=== PATIENT | male | born 1980 | race Caucasian/White ===

== ENCOUNTER 2024-03-25 16:26 | Emergency (ER) | payer BC, SELFPAY ==
[2024-03-25 17:32] VITALS: BP 147/84; PULSE 70; RESP 18; TEMP 37.1; O2SAT 97; BMI 39.3
--- NOTE | 2024-03-25 19:56 | CRLHL7_ITS ---
For Patients: As a result of the Century Cures Act, medical imaging exams and procedure reports are released immediately into your electronic medical record. You may view this report before your referring provider. If you have questions, please contact your health care provider. INDICATION: Possible left inguinal hernia. TECHNIQUE: CT pelvis without contrast. COMPARISON: None. FINDINGS: Bones: Alignment is normal. No sign of acute fracture. No suspicious bony lesions. Joints: Unremarkable. Soft tissues: Multiple mildly enlarged left inguinal lymph nodes, measuring up to 2.4 centimeters (series 2/image 83). No bowel containing or fat containing inguinal hernias as questioned. Visible bowel, prostate gland, bladder are unremarkable.. IMPRESSION: Multiple mildly enlarged left inguinal lymph nodes, measuring up to 2.4 centimeters. These are indeterminate, and could be reactive in nature. Recommend short-term clinical follow-up. These are amenable to ultrasound-guided biopsy if medically necessary. Otherwise, no acute intrapelvic abnormality including inguinal hernia as questioned. Please note that all CT scans at this facility use dose modulation, iterative reconstruction, and/or weight-based dosing when appropriate to reduce radiation dose to as low as reasonably achievable. Dictated by Jose Chilel MD @ 03/25/2024 8:34:03 PM (Electronically Signed)
--- NOTE | 2024-03-25 19:57 | ED_ITS ---
HPI - General Adult General Chief complaint: Groin Pain Stated complaint: Groin pain Time Seen by Provider: 03/25/24 19:33 History of Present Illness HPI narrative: This 43-year-old male comes in with left inguinal pain over the past couple days. The pain is worse when in a sitting and standing position. He feels a lump at times in this area and is suspicious of a hernia. He does not report any nausea, vomiting, altered bowel function or dysuria symptoms. Related Data Previous Rx's ?Medication ?Instructions ?Recorded hydrocodone 5 mg-acetaminophen 325 1 tab PO Q4-6H PRN pain #10 tabs 03/25/24 mg tablet Allergies Allergy/AdvReac Type Severity Reaction Status Date / Time No Known Drug Allergies Allergy Verified 03/25/24 17:40 Review of Systems Status of ROS: Reports: 10 or more systems reviewed and unremarkable except as noted in History and below Narrative: Constitutional: No fevers, no weight gain or loss. Eyes: No discharge. No vision changes. HENT: No congestion, no sore throat, no ear pain. Cardiovascular: No chest pain, no palpitations. Respiratory: No shortness of breath, no wheezes, no cough. Gastrointestinal: No vomiting, no diarrhea. Abdominal pain as described above. Genitourinary: No dysuria, no hematuria. Musculoskeletal: Normal range of motion. Skin: No rashes, no pruritis. Neurological: No dizziness, weakness, sensory change, speech change. Endo/Heme/Allergies: No bruising or bleeding. No polydipsia. Pysch: no suicidality, no anxiety, no insomnia. All other systems reviewed and are negative. Exam Narrative: Exam Narrative: Constitutional: Well-developed, well-nourished, no acute distress. HEENT: Normocephalic, atraumatic. Neck: Normal range of motion. Nontender. Supple. Heart: Regular. No murmurs. Normal rate. Intact distal pulses. Lungs: Clear to auscultation. No chest discomfort. No wheezes, rhonchi, or rales. Abdomen: Normal bowel sounds. No rebound tenderness. Tenderness in the left inguinal region. No obvious palpable mass from a hernia when in a sitting position. Genitalia: Deferred. Back: No midline tenderness. Normal range of motion. Extremities: Normal range of motion. No injury. Skin: Intact. No rash. Warm. No erythema or pallor. Neurologic: No altered sensation. No weakness. Alert and oriented. Psychiatric: No suicidality. No anxiety or depression. No insomnia. Nursing notes and vitals signs are reviewed. Const: Vital Signs, click to edit/add: Vital Signs - 24 hr 03/25/24 17:32 Temperature 98.8 F Pulse Rate [Right Pulse Oximeter] 70 Respiratory Rate 18 Blood Pressure [Ri ght Upper Arm] 147/84 H Pulse Oximetry 97 Oxygen Delivery Me thod Room Air Course Vital Signs Vital signs: Initial Vital Signs Temperature 98.8 F 03/25/24 17:32 Temperature Source Temporal Artery Scan 03/25/24 17:32 Pulse Rate 70 03/25/24 17:32 Pulse Rhythm Regular 03/25/24 17:32 Pulse Strength 3+ Normal 03/25/24 17:32 Respiratory Rate 18 03/25/24 17:32 Blood Pressure 147/84 H 03/25/24 17:32 Blood Pressure Mean 105 03/25/24 17:32 Blood Pressure Position Sitting 03/25/24 17:32 Pulse Oximetry 97 03/25/24 17:32 Oxygen Delivery Method Room Air 03/25/24 17:32 Vital Signs Temperature 98.8 F 03/25/24 17:32 Pulse Rate 70 03/25/24 17:32 Respiratory Rate 18 03/25/24 17:32 Blood Pressure 147/84 H 03/25/24 17:32 Pulse Oximetry 97 03/25/24 17:32 Oxygen Delivery Method Room Air 03/25/24 17:32 Temperature 98.8 F 03/25/24 17:32 Pulse Rate 70 03/25/24 17:32 Respiratory Rate 18 03/25/24 17:32 Blood Pressure 147/84 H 03/25/24 17:32 Pulse Oximetry 97 03/25/24 17:32 Oxygen Delivery Method Room Air 03/25/24 17:32 Medical Decision Making MDM Narrative Medical decision making narrative: This patient comes in reporting left inguinal pain for the past couple days. I did order a CT scan of the pelvis and radiologist reviewed it stating that there is no evidence of inguinal hernia. There is noted to be some mildly enlarged inguinal lymph nodes. Patient does not have any sign of infection but these reactive lymph nodes are likely what is causing his discomfort. There is no other abnormality identified. The patient is reassured with this result and is glad that there is no sign of a hernia. I did provide [facility] prescription for Spring. I also advised him regarding signs and symptoms that would indicate need for return and re-evaluation. Imaging Data CT scan - pelvis: Radiologist's impression: Multiple mildly enlarged left inguinal lymph nodes, measuring up to 2.4 centimeters. These are indeterminate, and could be reactive in nature. Recommend short-term clinical follow-up. These are amenable to ultrasound-guided biopsy if medically necessary. Otherwise, no acute intrapelvic abnormality including inguinal hernia as questioned. Discharge Plan Discharge Clinical Impression: Inguinal lymphadenopathy Patient Disposition: Home, Self-Care Condition: Stable Additional Instructions: Take medication as needed and directed. Follow up with MD return if symptoms are persistent or worsening. Prescriptions: New hydrocodone-acetaminophen 5-325 mg tablet 1 tab PO Q4-6H PRN (Reason: pain) Qty: 10 0RF Follow Up/Referrals: Provider,Not a Local [Primary Care Provider] - Stand Alone Forms: Xiaoi Robert Info Instructions
--- OUTSIDE RECORDS SUMMARY | 2024-03-25 20:14 | XMS_ITS | Clinical Summary ---
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 Hyperlipidemia 07/29/2012 Encounters Date Type Department Care Team Description 03/25/2024 Nurse Triage [facility] [address] [place] [address] Colby Deng MD Penis/scrotal Problem from Last 3 Months Immunizations Name Administration Dates Next Due Hepatitis B (Adult) 03/29/2012,10/18/2011,2011 MMR 07/06/1994 Td (Age >=7 Years) 03/08/2004 Tdap 10/04/2011 Family History Medical History Relation Name Comments Good Health Father Heart Disease Maternal Grandfather Other Maternal Grandmother gout Good Health Mother Cancer-colon No Family History Cancer-prostate No Family History Diabetes No Family History Relation Name Status Comments Father Alive Maternal Grandfather Maternal Grandmother Mother Alive Social History Tobacco Use Types Packs/Day Years Used Date Smoking Tobacco: Some Days Cigarettes 0.3 5 Started: 03/31/2006; Last attempted to quit: 03/31/2011 Smokeless Tobacco: Never Tobacco Cessation:Ready to Q uit: No; Counseling Given: Yes Alcohol Use Standard Drinks/Week Comments Yes 0 (1 standard drink = 0.6 oz pur e alcohol) occasional PHQ-2 Answer Date Recorded PHQ-2 TOTAL SCORE 0 07/19/2021 Social Connections Answer Date Recorded Frequency of Communication with Friends and Fami ly Not on file 03/19/2021 Financial Resource Strain Answer Date R ecorded Difficulty of Paying Living Expenses Not on file 03/19/2021 Difficulty of Paying Living Expenses Not on file 03/19/2021 Sex and Gender Information Value Date Recorded Sex Assigned at Not on file 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 Gender Identity Not on file Sexual Orientation Not on file Obstetrics History Last Filed Vital Signs Vital Sign Reading Time Taken Comments Blood Pressure 117/84 09/22/2021 8:19 AM CDT Pulse 70 09/22/2021 8:19 AM CDT Temperature 36.6 C (97.8 F) 01/14/2019 4:26 PM CDT Respiratory Rate 16 02/15/2016 4:17 PM 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 Oxygen Saturation 99% 07/19/2021 2:24 PM CDT Inhaled Oxygen Concentration - - Weight 125 kg (275 lb 8 oz) 09/22/2021 8:19 AM C DT Height 179.9 cm (5' 10.83) 07/19/2021 2:24 PM C DT Body Mass Index 38.61 07/19/2021 2:24 PM CDT Plan of Treatment Upcoming Encounters Date Type Department Care Team (Late st Contact Info) Description 04/01/2024 1:00 PM 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 Appointment [address] [address] Health Maintenance Due Date Last Done Comments HIV for age 15-65 1997 Hepatitis C screening for age 18-79 2000 Tetanus booster 10/03/2021 10/04/2011, 03/08/2004 BMI (ht and wt on same day) for age 18+ 07/19/2022 07/19/2021, 01/14/2019, 12/10/2017, Additional history exists Depression screening for age 12+ 07/19/2022 07/19/2021, 01/14/2019, 12/11/2017, Additional history exists COVID-19 vaccine series ( season) 2023 Influenza for age 9-49 11/18/2023 Lipids for age 35-44 01/15/2024 01/14/2019, 08/02/2012, 04/24/2012 Tdap Completed 10/04/2011 Pneumococcal series for age 6-49 Aged Out No longer eligible based on patient's age to complete this topic Procedures Procedure Name Priority Date/Time Associated Diagnosis Comments LIPID PANEL W REFLEX MEASURED LDL Routine 01/14/2019 4:58 PM CDT Hyperlipidemia, unspecified hyperlipidemia type from Last 3 Months or Most Recently Relevant to Health Maintenance Results * (ABNORMAL) LIPID PANEL W REFLEX MEASURED LDL (01/14/2019 4:58 PM CDT) CHOLESTEROL,TOTAL 219(H) 100 - 199 mg/dL 01/15/2019 2:22 PM CDT [facility] [address] [employer] TRIGLYCERIDES 222(H) <150 mg/dL 01/15/2019 2:22 PM CDT [facility] HDL CHOLESTEROL 44 >40 mg/dL 9 2:22 PM CDT [facility] NON-HDL CHOLESTEROL 175(H) <145 mg/dl 01/15/2019 2:22 PM CDT [facility] CHOL/HDL RATIO 4.98(H) <4.50 01/15/2019 2:22 PM CDT [facility] LDL CHOLESTEROL 131(H) <=130 mg/dL 01/15/2019 2:22 PM CDT [facility] PROVIDER ORDERED STATUS RANDOM 01/15/2019 2:22 PM CDT [facility] Blood BLOOD SPECIMEN / Unknown Venipuncture / Unknown 01/14/2019 4:58 PM CDT 01/14/2019 5:15 PM CDT us Colby Deng MD CHEMISTRY Final Result [facility] [address] [place] [address], [place] from Last 3 Months or Most Recently Relevant to Health Maintenance Insurance [employer] COMP ATTN MED UNIT PP [id number] [address] [address] [place] [address] Care Teams Boiler Control Room Operator Relationship Specialty Start Date End Date Colby Deng MD [address] [place] [address] PCP - General Family Practice 12/31/18
== END 2024-03-25 21:15 | disposition home or self-care (01) ==
PROVIDERS: Emergency Provider Emergency Medicine Emergency Medical Services
DX: R59.0 Localized enlarged lymph nodes (principal)
CPT/HCPCS: 72192; 99283; 99284